=== PATIENT | female | born 1960 | race Caucasian/White ===

== ENCOUNTER → 2023-12-20 09:09 | Outpatient (CLI) | payer MEDICARE, MEDICAID, SELFPAY | PROVIDERS: PCP Registered Nurse; Referring Provider Internal Medicine Critical Care Medicine; Visit Provider Internal Medicine Critical Care Medicine | DX: J44.9 Chronic obstructive pulmonary disease, unspecified (principal); F17.210 Nicotine dependence, cigarettes, uncomplicated; R91.8 Other nonspecific abnormal finding of lung field | CPT/HCPCS: 94060; 94726; 94729 ==

== ENCOUNTER → 2023-12-20 11:10 | Outpatient (CLI) | payer MEDICARE, MEDICAID, SELFPAY ==
--- NOTE | 2023-12-20 11:12 | DI.CT.S_ITS ---
PROCEDURE: CT CHEST WO CON INDICATIONS: lung nodule TECHNIQUE: Noncontrast 2.0-2.5 mm thick sections acquired from the pulmonary apices to the posterior costophrenic angles. 7 mm thick axial MIP, and 5 mm coronal and sagittal reformats were then acquired. For radiation dose reduction, the following was used: automated exposure control, adjustment of mA and/or kV according to patient size. COMPARISON: None. FINDINGS: Image quality: Diagnostic. Lower Neck: No enlarged lymph nodes. Thyroid: No thyroid nodules which require sonographic follow up, per consensus guidelines. Axillae: No enlarged lymph nodes. Chest Wall: Unremarkable. Bones: Unremarkable. Lungs and Pleura: No pneumothorax or pleural effusions. No consolidation or suspicious nodules. Heart: Heart size is normal. No pericardial effusion. Two vessel coronary calcifications, severe in the LAD. Thoracic Vessels: The aorta and pulmonary arteries demonstrate normal size. Mediastinum and [place]: No enlarged lymph nodes. Esophagus: No wall thickening. No hiatal hernia. Upper Abdomen: 2.2 centimeter right adrenal adenoma based on Hounsfield units criteria (-9 Hounsfield unit). IMPRESSION: No suspicious pulmonary nodules. LUNG-RADS 1; continued annual screening, if eligible. Clinically Significant Non-pulmonary Findings: 1. Marked coronary artery calcifications for age. Correlate with risk factors and advise counseling. 2. Right adrenal adenoma. [place] recommend routine biochemical screening to exclude a functional adenoma. Dictated by: Michael Barrientos M.D. on 12/21/2023 at 10:04 Approved by: Michael Barrientos M.D. on 12/21/2023 at 10:07
== END ==
PROVIDERS: PCP Registered Nurse; Referring Provider Internal Medicine Critical Care Medicine; Visit Provider Internal Medicine Critical Care Medicine
DX: D35.01 Benign neoplasm of right adrenal gland (principal); R91.1 Solitary pulmonary nodule; I25.10 Atherosclerotic heart disease of native coronary artery without angina pectoris; J44.9 Chronic obstructive pulmonary disease, unspecified; F17.210 Nicotine dependence, cigarettes, uncomplicated; R91.8 Other nonspecific abnormal finding of lung field
CPT/HCPCS: 71250; 94060; 94726; 94729

== ENCOUNTER → 2025-03-12 11:16 | Outpatient (CLI) | payer MEDICARE, SELFPAY ==
--- NOTE | 2025-03-12 11:18 | DI.CT.S_ITS ---
PROCEDURE: CT LUNG LOW DOSE SCREENING INDICATIONS: LDCT TECHNIQUE: Noncontrast 2.0-2.5 mm thick sections acquired from the pulmonary apices to the posterior costophrenic angles. 7 mm thick axial MIP, and 5 mm coronal and sagittal reformats were then acquired. For radiation dose reduction, the following was used: automated exposure control, adjustment of mA and/or kV according to patient size. COMPARISON: [facility], CT, CT CHEST WO CON, 12/20/2023, 11:21. FINDINGS: Image quality: Diagnostic. Pulmonary nodules: New 5.5 millimeter nodule in the left lower lobe. Pulmonary incidental findings: None. Other incidental findings: Severe coronary calcification, unchanged. Aortic arch atherosclerotic calcifications. Cholecystectomy. Right adrenal adenoma, unchanged in size. Severe degenerative changes of the spine. IMPRESSION: New pulmonary nodule measuring 5.5 millimeter. LUNG-RADS 3; probably benign, six-month follow-up examination recommended. Clinically Significant Non-pulmonary Findings: Severe coronary calcification. Adrenal adenoma on the right, stable. Dictated by: Toy Vallejo M.D. on 03/12/2025 at 16:44 Approved by: Toy Vallejo M.D. on 03/12/2025 at 16:50
== END ==
PROVIDERS: PCP Registered Nurse; Referring Provider Internal Medicine Critical Care Medicine; Visit Provider Internal Medicine Critical Care Medicine
DX: Z12.2 Encounter for screening for malignant neoplasm of respiratory organs (principal); F17.210 Nicotine dependence, cigarettes, uncomplicated; J44.9 Chronic obstructive pulmonary disease, unspecified; R91.1 Solitary pulmonary nodule; D35.01 Benign neoplasm of right adrenal gland; I25.10 Atherosclerotic heart disease of native coronary artery without angina pectoris; I70.0 Atherosclerosis of aorta; Z90.49 Acquired absence of other specified parts of digestive tract
CPT/HCPCS: 71271